=== PATIENT | female | born 1975 | race Caucasian/White ===

== ENCOUNTER 2016-08-07 17:06 | Observation (INO) | payer SELFPAY ==
[~2016-08-07] VITALS: Ht 167.6 cm; Wt 105.6 kg
--- NOTE | ~2016-08-07 | HP ---
PATIENT'S NAME: BEA BROWN [facility] AGE: 40 Y [address] ROOM: [place] [id number] LOCATION: [facility] ADMIT DATE: 08/07/2016 History & Physical DISCHARGE DATE: FAMILY PHYSICIAN: Cathy Negrete MD ATTENDING PHYSICIAN: SHERLY SHEPPARD V DATE OF SERVICE: CHIEF COMPLAINT: Blurry vision and left facial swelling. HISTORY OF PRESENT ILLNESS: The patient is a 40-year-old female, who has been undergoing some dental work due to a fractured tooth in the last several days. Yesterday, she developed pain and swelling over her left side of the face and was given ceftriaxone and Augmentin. This morning, the patient developed worsening swelling over the left side of her face as well as blurry vision. She came into the ER. A workup demonstrated a left-sided superficial facial cellulitis related to a left mandibular abscess, but no drainable abscesses or postseptal cellulitis. An MRI of the brain; however, demonstrated a 3 cm right cerebellar meningioma. At this point, the patient has received vancomycin and has seen by Neurosurgery. She feels that the swelling is better. Her vision is 20/30, which is her baseline. I do not appreciate any extraocular movement compromise or any compromise of the globe. REVIEW OF SYSTEMS: She denies nausea, vomiting, chest pain, shortness of breath, or palpitations. She does endorse recurrent migraines, which is an existing problem for her. PAST MEDICAL HISTORY: Migraines. PAST SURGICAL HISTORY: The patient denies. CURRENT MEDICATIONS: 1. Excedrin Migraine. 2. Augmentin. SOCIAL HISTORY: She does admit to tobacco use. Denies any other toxic habits. FAMILY HISTORY: Reviewed and is noncontributory. PATIENT'S NAME: BEA BROWN [facility] AGE: 40 Y [address] ROOM: [address] [address] LOCATION: [facility] ADMIT DATE: 08/07/2016 History & Physical DISCHARGE DATE: FAMILY PHYSICIAN: Cathy Negrete MD ATTENDING PHYSICIAN: SHERLY SHEPPARD V PHYSICAL EXAMINATION: VITAL SIGNS: At this point, her vital signs are blood pressure 129/89, heart rate is 89, saturating 96% on room air, she is afebrile, respirations are 16. GENERAL: Appears well-developed, well-nourished, middle-aged female, in no acute distress. HEENT: Facial exam does reveals some puffiness over the left side of her face with some discoloration over her left lid. There is very marginally palpable left-sided lymphadenopathy. Eyes exam reveals the pupils are equal and reactive and extraocular movements are symmetrical and intact bilaterally. Her vision is 20/30 in the affected eye, no stridor. LYMPHATIC: As above. NEUROLOGIC: Reveals no focal deficits. LUNGS: Reveals clear to auscultation. HEART: Rate is regular. ABDOMEN: Soft, nontender. : No costovertebral angle tenderness. VASCULAR: Reveals 2+ pedal pulses. MUSCULOSKELETAL: Unremarkable. PSYCHIATRIC: Reveals appropriate mood, cognition, and affect. LABORATORY STUDIES: Documented in the HPI. Lab results are significant for normal basic metabolic profile and a CBC with a hemoglobin of 8.7 and microcytosis. Platelets are 209. Procalcitonin is negative. Sedimentation rate is 139. ASSESSMENT AND PLAN: This is a 40-year-old female, who will be admitted with: 1. Facial cellulitis. The case has been discussed by my partner Dr. Gonzales with Dr. Michelle who will see the patient in the morning. We will aggressively treat her to cover gram-positive and gram-negative organisms that may be associated with a dental abscess. She has already received vancomycin in the ER and we will add Unasyn and continue her on this regimen. We will also put on a probiotic. We will also start her on symptomatic control with Tylenol. 2. Newly diagnosed meningioma. The patient has been seen by Dr. Qiu. We will see her as outpatient and plan surgery. 3. Microcytic anemia. We will check her iron indices and decide on additional followup, which can probably be done as outpatient. 4. Additional management will depend on clinical course. Time dedicated to this patient's encounter is 35 minutes. PATIENT'S NAME: BEA BROWN [facility] AGE: 40 Y [address] ROOM: [address] [address] LOCATION: [facility] ADMIT DATE: 08/07/2016 History & Physical DISCHARGE DATE: FAMILY PHYSICIAN: Cathy Negrete MD ATTENDING PHYSICIAN: SHERLY SHEPPARD MD AVK/mary /[id number] D: [id number] T: [id number] HISTORY & PHYSICAL
--- NOTE | ~2016-08-07 | DS ---
PATIENT'S NAME: BEA BROWN [facility] AGE: 40 Y [address] ROOM: [place] [address] [facility]: [facility] ADMIT DATE: 08/07/2016 Discharge Summary DISCHARGE DATE: 08/09/2016 FAMILY PHYSICIAN: Cathy Negrete MD ATTENDING PHYSICIAN: Clint Land V PRIMARY DIAGNOSES: 1. Preseptal cellulitis of the face. 2. Dental caries. 3. Meningioma. 4. Iron deficiency anemia. 5. Menorrhagia. 6. Migraine headaches. 7. Tobaccoism. OPERATIONS/PROCEDURES: None. HISTORY OF PRESENTING ILLNESS AND REASON FOR ADMISSION: Please refer to the H and P dictated on 08/07/2016. HOSPITAL COURSE: The patient was admitted to the hospital as noted above with a presumptive diagnosis of facial cellulitis. She was seen and evaluated by Neurosurgery as well as Ophthalmology at the point of admission. She was placed on broad-spectrum antibiotic therapy with IV Unasyn and vancomycin. She was hemodynamically stable. Because of the identification of a fairly large suspected meningioma, Neurosurgery was consulted. It was recommended to treat the infection and plan for outpatient followup for elective surgery. The meningioma was felt to be compressing the cerebellum and lateral fourth ventricle. She was otherwise asymptomatic from that standpoint. Her clinical condition improved fairly quickly. The facial swelling and redness had essentially resolved. She was treated with vancomycin and Unasyn over the course of the first 24 hours. This was subsequently switched to oral Augmentin. She was noted to have significant iron deficiency anemia, and this was felt to be secondary to chronic blood loss from menorrhagia. It was suggested that she should follow up with primary care provider to discuss management of this problem. We did place her on iron supplementation. By the third day of her hospital stay, it was felt she would be stable enough for discharge to home with plans for close clinical followup with her primary PATIENT'S NAME: BEA BROWN [facility] AGE: 40 Y [address] ROOM: [place] [address] LOCATION: [facility] ADMIT DATE: 08/07/2016 Discharge Summary DISCHARGE DATE: 08/09/2016 FAMILY PHYSICIAN: Cathy Negrete MD ATTENDING PHYSICIAN: Clint Land V care provider as well as outpatient followup with Neurosurgery as discussed above. DISCHARGE INSTRUCTIONS: DIET: Regular, as tolerated. ACTIVITY: As tolerated. MEDICATIONS: 1. Augmentin 875 mg p.o. b.i.d. x7 days. 2. Niferex 150 mg p.o. b.i.d. x30 days. 3. Florastor 250 mg p.o. b.i.d. x10 more days. 4. Acetaminophen 1000 mg p.o. q.6 hours p.r.n. 5. [place] 5/325 one tablet p.o. q.4 hours p.r.n. 6. Excedrin Migraine daily as needed for migraine headache pain. 7. Nicotine patch 14 mg, apply and change daily. FOLLOWUP: She will follow up with Dr. Qiu in the clinic in the upcoming week. She will follow up with Dr. Cathy Negrete, her primary care provider, in 3 to 5 days. CONDITION ON DISCHARGE: Fair. Total time spent on discharge process is 40 minutes. MD RAINA QUEVEDO/mary /[id number] d: 08/10/16 1054 t: 08/10/16 1642, DISCHARGE SUMMARY
--- NOTE | ~2016-08-07 | ER ---
PATIENT'S NAME: BEA BROWN [facility] AGE: 40 Y [address] ROOM: [id number] [place], [place] [address] LOCATION: [facility] ADMIT DATE: 08/07/2016 ER/Outpatient Report DISCHARGE DATE: FAMILY PHYSICIAN: Cathy Negrete MD ATTENDING PHYSICIAN: SHERLY SHEPPARD V HISTORY OF PRESENT ILLNESS: This patient is a 40-year-old female, who comes in with left facial swelling, pain, accompanied with fever, chills, headache. This was thought to be possibly a dental abscess extending up into the left periorbital area with blurred vision and left facial/periorbital swelling and redness. The patient was initially seen by Dr. Vines. See Dr. Vines's dictation in regard to the chief complaint, history of present illness, past medical history, physical exam, and laboratory study results. Dr. Vines transferred the patient's care over to me at shift change. She asked me to follow up the patient's results on her MRI scan of the facial bones, final diagnosis, and treatment plan. Dr. Vines did talk with Dr. Gonzales, hospitalist. Dr. Gonzales did see the patient down here in the emergency department. He did start her on vancomycin IV. MRI scan of the facial bones and orbits showed some soft tissue swelling, left periorbital area, but no abscess. No sinus changes, no facial bone changes. She did have a right 3 cm posterior fossa meningioma putting pressure on the cerebellum and right 7th cranial nerve. MRI scan was read by Radiology, see dictated/transcribed report. IMPRESSION: 1. Left facial swelling, redness, and pain, etiology uncertain, but most likely a cellulitis. No abscess on MRI scan. 2. Right 3 cm posterior fossa meningioma putting pressure on the cerebellum and 7th cranial nerve. 3. Headaches. PLAN: I did discuss the MRI scan with Dr. Gonzales, hospitalist. Dr. Gonzalse wanted the patient admitted to neurotrauma. The patient is receiving IV vancomycin here in the emergency department. Also was given fentanyl for pain. The patient most likely needs to have an Ophthalmology consult with Dr. Michelle and also Neurosurgery consult. JOSELYN VILLARREAL MD SDS/modl PATIENT'S NAME: BEA BROWN [facility] AGE: 40 Y [address] ROOM: [address] [address] LOCATION: [facility] ADMIT DATE: 08/07/2016 ER/Outpatient Report DISCHARGE DATE: FAMILY PHYSICIAN: Catyh Negrete MD ATTENDING PHYSICIAN: SHERLY SHEPPARD V /[id number] d: 08/08/16301 t: 08/08/161811, OUTPATIENT REPORT
--- NOTE | ~2016-08-07 | CON ---
PATIENT'S NAME: BEA BROWN [facility] AGE: 40 Y [address] 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 HISTORY OF PRESENT ILLNESS: The patient is a 40-year-old female who started complaining of left facial swelling and pain yesterday. She was assessed by her family physician and started on antibiotics. Today, the swelling got worse and she was reassessed by her family physician who sent the patient to the emergency for further investigations. The patient was seen by Ophthalmology as well. There was a concern about periorbital cellulitis. Noncontrast CT head was done, followed by brain MRI. Those investigations showed evidence of fairly large right cerebellar extra-axial mass with features very suggestive of right tentorial meningioma. I was asked to assess the patient with regard to that. I met the patient in the Neuro Trauma unit. She confirmed the history. She also reported a long history of migraine headaches. She denied dizziness, vertigo, falls, weakness on her hands or feet, double vision, weight loss. She reported left eye pain. She denied any pus drainage in her mouth. She reported remote history of head trauma. PAST MEDICAL AND SURGICAL HISTORY: Noncontributory to the patient's presentation. MEDICATIONS: Listed in the patient's chart. ALLERGIES: NO KNOWN DRUG ALLERGIES. SOCIAL HISTORY: The patient is an active smoker. She denies alcohol drinking. She denies drug abuse. FAMILY HISTORY: Noncontributory to the patient's presentation. PATIENT'S NAME: BEA BROWN [facility] AGE: 40 Y [address] ROOM: [place] [id number] LOCATION: [facility] ADMIT DATE: 08/07/2016 Consultation DISCHARGE DATE: FAMILY PHYSICIAN: Cathy Negrete MD ATTENDING PHYSICIAN: SHERLY SHEPPARD V REVIEW OF SYSTEMS: All points of review of systems were asked about. Pertinent positives were mentioned in HPI. PHYSICAL EXAMINATION: GENERAL: The patient was cooperative and pleasant. HEAD: It showed evidence of swelling over the left cheek. That area was tender to palpation. No evidence of open lacerations. MOUTH AND THROAT: She had poor dental hygiene. No evidence of purulent discharge. NECK: She had no tenderness to palpation. Neck range of motion was full and painless. No palpable masses. LYMPHATIC: No cervical lymphadenopathy. GAIT: It was steady. She was able to do the toe and heel walking. She was also able to do the tandem gait. RESPIRATORY: She was not in any respiratory distress. CARDIOVASCULAR: She has strong pulses on the upper and lower extremities. NEUROLOGIC: She was alert and oriented. Cranial nerves examination was grossly normal. Cerebellar examination was completely normal. Hjculm-sq-wfhb test was negative. No evidence of nystagmus. Romberg's test was questionable. Motor and sensory examination on the upper and lower extremities was unremarkable. Don and Babinski signs were negative. INVESTIGATIONS: 1. Sinus CT scan done earlier today. That scan showed evidence of soft tissue swelling over the left maxillary sinus. The maxillary sinus itself was patent and no evidence of sinusitis. The scan showed evidence of partially calcified mass located in the right posterior fossa. The CT features are very highly suggestive of right tentorial meningioma. 2. Brain MRI without and with contrast. It confirmed the findings of the CT scan. It showed evidence of 3 x 3 x 4 cm homogeneously enhancing mass located within the right posterior fossa. The mass itself is based against the right tentorium. The mass itself involves and occludes the right transverse sinus. The left transverse sinus is dominant and patent. No evidence of brain edema. No other masses were seen. The left orbit was negative for enhancement. IMPRESSION AND PLAN: A 40-year-old female patient is admitted to the hospital with left facial cellulitis is found to have a fairly large right tentorial mass with radiographic features suggestive of right tentorial meningioma. The patient is asymptomatic from the tumor. The tumor is fairly large and causing mass effect on the right cerebellum. The tumor itself is also occluding the right transverse sinus. PATIENT'S NAME: BEA BROWN [facility] AGE: 40 Y [address] ROOM: [address] [address] LOCATION: [facility] ADMIT DATE: 08/07/2016 Consultation DISCHARGE DATE: FAMILY PHYSICIAN: Cathy Negrete MD ATTENDING PHYSICIAN: SHERLY SHEPPARD V RECOMMENDATIONS: 1. Antibiotic treatment for the left facial cellulitis. 2. CT venogram of the brain to assess the patency of the right transverse sinus. 3. I recommended right craniotomy and resection of the tumor given the size of the tumor and the mass effect on the right cerebellum. I clearly indicated that the surgery should be done electively after the infection is treated to prevent complications. 4. The patient can be discharged from the neurosurgical perspective. 5. Ophthalmology assessment. I personally reviewed the images and discussed the findings with the patient. I clearly indicated that the radiographic features very highly suggestive of right tentorial meningioma. I then discussed my recommendation with the patient. I clearly indicated that based on the size of the tumor and mass effect it is causing on the right cerebellum, surgical resection is recommended. I will meet with this patient in my office after the infection is treated to discuss the surgery in more details. I do not think this patient requires any dexamethasone at this point. The patient asked appropriate questions about imaging and the surgery and all those questions were answered to her satisfaction. It was pleasure taking care of this patient and thanks for having us involved. MD MILAGROS CASTILLO/mary /[id number] CC: MD Cathy Rodriguez, MD Anisa Allan DO d: 08/08/16 0527 t: 08/10/16 1235, CONSULTATION REPORT
--- NOTE | ~2016-08-07 | ER ---
PATIENT'S NAME: BEA BROWN [facility] AGE: 40 Y [address] ROOM: [place] [address] LOCATION: [facility] ADMIT DATE: 08/07/2016 ER/Outpatient Report DISCHARGE DATE: FAMILY PHYSICIAN: Cathy Negrete MD ATTENDING PHYSICIAN: SHERLY SHEPPARD V Time of Arrival: 1706 hours. Time of Evaluation/Seen: 1708 hours. IDENTIFICATION: A 40-year-old female. CHIEF COMPLAINT: Facial swelling. HISTORY OF PRESENT ILLNESS: The patient is a 40-year-old female, referred from [facility] for facial swelling and evaluation by Ophthalmology and Hospitalist. The patient was in the clinic, seen for facial swelling and dental abscess the day prior, but today she noted increase in swelling in and around her left eye with some blurriness to her left eye. They did talk with Dr. Gonzales, who recommended she come to the ER. Dr. Gonzales spoke with Dr. Michelle, who requested an MRI of her orbit. The patient has had no fever or chills. No other problems or concerns. PAST MEDICAL HISTORY: ALLERGIES: NO KNOWN DRUG ALLERGIES. CURRENT MEDICATIONS: 1. Tylenol. 2. Ibuprofen. 3. Amoxicillin. 4. Excedrin Migraine. MEDICAL PROBLEMS: Migraine headaches. PAST SURGICAL HISTORY: Prior Surgeries: 1. Tubal ligation. 2. Tonsillectomy. 3. Benign breast lumpectomy. PATIENT'S NAME: BEA BROWN [facility] AGE: 40 Y [address] ROOM: [place] [address] LOCATION: [facility] ADMIT DATE: 08/07/2016 ER/Outpatient Report DISCHARGE DATE: FAMILY PHYSICIAN: Cathy Negrete MD ATTENDING PHYSICIAN: SHERLY SHEPPARD V SOCIAL HISTORY: The patient lives here in [place]. She works at [employer]. Tobacco use, half pack per day for 21 years. Alcohol use, denies. Drug use, denies. REVIEW OF SYSTEMS: All systems reviewed and are negative other than what is noted in the HPI. PHYSICAL EXAMINATION: VITAL SIGNS: Height 5 feet 6 inches and weight 104.3 kg. Blood pressure 133/83, pulse 66, respiratory rate 16, temperature 98.5, and sats 99% on room air. GENERAL: A 40-year-old female, in no acute distress. HEENT: Head; normocephalic and atraumatic. Ears; TMs translucent in both ears. Eyes; pupils equal and reactive to light and accommodation. Extraocular movements intact. Nose; mucosa pink. No lesions or drainage. Mouth; no lesions. Pharynx, benign. She does have swelling and tenderness over her left mandible. She has redness around her eye that is tender to palpation. Some swelling in that area. She has no redness to the conjunctivae and her extraocular movements are intact. Grossly she says she has a little blurred vision in that left eye. NECK: Supple. No lymphadenopathy. LUNGS: Clear to auscultation. HEART: Regular rate and rhythm. ABDOMEN: Soft, nondistended, and nontender. SKIN: [place], warm, and dry. No lesions or rashes noted. NEUROLOGIC: The patient is alert and oriented x4. Cranial nerves 2 through 12 grossly intact. Motor strength 5/5 throughout. Sensation is intact to light touch. LABORATORY DATA: 1. Laboratories were ordered to include: CBC, renal panel, sedimentation rate, CRP, lactate, and procalcitonin. EMERGENCY DEPARTMENT COURSE: IV vancomycin was ordered per Dr. Gonzales's recommendation. CT and MRI were ordered. Dr. Gonzales evaluated the patient in the emergency room and he will contact, Dr. Michelle. It is change of shift and Dr. Alvarado will assume any necessary ER care. IMPRESSION AND PLAN: 1. Facial cellulitis with a possibility of periorbital cellulitis. MRI pending at this time and Dr. Michelle's consultation is pending at this time. IV vancomycin has been ordered. 2. Her hemoglobin did come back prior to my leaving and her hemoglobin is 8.7, white count is normal at 6.3. Previous hemoglobin for comparison PATIENT'S NAME: BEA BROWN [facility] AGE: 40 Y [address] ROOM: [id number] [place], [place] [address] LOCATION: [facility] ADMIT DATE: 08/07/2016 ER/Outpatient Report DISCHARGE DATE: FAMILY PHYSICIAN: Cathy Negrete MD ATTENDING PHYSICIAN: SHERLY SHEPPARD V here in our system was in September 2015, when it was 10.1, so impression and plan is microcytic hypochromic anemia. Further work up per Dr. Gonzales. MD REYNALDO MERAZ/mary /[id number] d: 08/08/16 1651 t: 08/13/16 0653, OUTPATIENT REPORT
[2016-08-07 17:51] LABS: BASOPHIL % 0.5 %; EOSINOPHIL % 0.5 %; HEMOGLOBIN 8.7 g/dL (11.0-15.0); IMMATURE GRANULOCYTE % 0.3 %; LYMPHOCYTE # 1.3 K/uL (0.8-4.0); LYMPHOCYTE % 21.1 %; MCH 23.1 pg (27.0-34.0); MCV 76.9 fl (83.0-98.0); MONOCYTE # 0.4 K/uL (0.0-1.0); MONOCYTE % 6.2 %; MPV 12.4 fl (9.4-12.4); NEUTROPHIL # (ANC) 4.5 K/uL (1.8-7.8); NEUTROPHIL % 71.4 %; NRBC % 0 /100WBC (0-0.00); PLATELET COUNT 209 K/uL (150-450); RBC 3.77 M/uL (3.50-5.50); RDW-CV 16.1 % (11.9-14.6); WBC 6.3 K/uL (4.0-11.0)
[2016-08-07 18:12] LABS: ALBUMIN 3.5 gm/dL (3.5-5.0); BLOOD UREA NITROGEN 10 mg/dL (6-24); CALCIUM 8.8 mg/dL (8.5-10.5); CHLORIDE 109 mMol/L (96-110); CO2 23 mMol/L (22-32); CREATININE 0.6 mg/dL (0.5-1.1); ESTIMATED GFR (MDRD EQUATION) > 60; PHOSPHORUS 2.6 mg/dL (2.5-4.9); SODIUM 141 mMol/L (135-145)
[2016-08-07 18:28] LABS: ANION GAP 13.3 (10.0-19.0); POTASSIUM 4.3 mMol/L (3.7-5.1)
--- NOTE | 2016-08-08 00:14 | NUR ---
Patient arrived on floor from the ER at 2109. Patient had swelling to her face and had seen her family doctor 08/06 who had placed her on antibiotics since it looked like she might have gotten an infection due to a tooth absess. Pt went back to doctor 08/07 since swelling had gotten worse. Doctor then sent her to the ER. In ER they did MRI and found a meningioma. Pt had IV placed in ER and was started on vanco to help with infection in face. Dr. Qiu then saw patient on the floor and discussed possible surgery after infection in face is cleared.
--- NOTE | 2016-08-08 02:55 | NUR ---
Significant Event: Alert and oriented x3. Denies N&T. Moves all extremities without complications. Up SBA moves steady on feet feels light headed at times when first stands. PERRLA. VSS. Regular diet. Currently on minstrel cycle. Last BM 08/06. RA lungs clear. IV to L) wrist SL on intermitent antibiotics. Percocet given for pain. Follow up: IV antibiotics possible d/c today. Follow up with Dr. Qiu outpatient.
[2016-08-08 04:15] LABS: BASOPHIL % 0.3 %; EOSINOPHIL % 0.5 %; HEMATOCRIT 26.9 % (33.0-46.0); HEMOGLOBIN 8.1 g/dL (11.0-15.0); IMMATURE GRANULOCYTE % 0.2 %; LYMPHOCYTE # 1.7 K/uL (0.8-4.0); LYMPHOCYTE % 29.7 %; MCH 23.5 pg (27.0-34.0); MCHC 30.1 gm/dL (32.0-36.5); MONOCYTE # 0.4 K/uL (0.0-1.0); MONOCYTE % 7.3 %; MPV 11.7 fl (9.4-12.4); NEUTROPHIL # (ANC) 3.6 K/uL (1.8-7.8); NRBC % 0 /100WBC (0-0.00); PLATELET COUNT 192 K/uL (150-450); RBC 3.45 M/uL (3.50-5.50); RDW-CV 15.9 % (11.9-14.6); WBC 5.8 K/uL (4.0-11.0)
[2016-08-08] MEDS ORDERED: TYLENOL EXTRA500 MG PO (09:53)
[2016-08-08] MEDS ORDERED: EXCEDRIN MIGRA1 EACH PO (09:53)
--- NOTE | 2016-08-08 12:30 | NUR ---
Pt sleeping, so I spoke with nursing and do not anticipate any needs on discharge. WIll assist as needed
--- NOTE | 2016-08-08 14:53 | NUR ---
Significant Event: a/o x 3. pain to left side of face from infection and left hand IV site. PRN percocet for pain management. Cardio- tele with sinus shelbie. room air. c/o nausea and emesis around 0930 and 1300. PRN zofran, crackers and rest for nausea. IV to left hand saline locked in between antibiotic doses. up ad diana. was going to go home today and then after emesis at 1300 decided to stay another day. Dr. Michelle (eye doctor) saw patient this am. Discharge plan- home tomorrow.
--- NOTE | 2016-08-09 04:23 | NUR ---
Significant Event: Patient is alert and oriented x3. VSS. PERRLA. Follows commands. Strong equal strength throughout. Denies N/T. Denies BRADY. Edema to the left side of face has diminished. Slight redness to left eye area. Sinus rhythm to sinus shelbie. 2+ pulses. Portable tele. Room air-lungs are clear. Regular diet. Last Bm -08/07-active x4. Up ad diana- SBA. PIV in left wrist- sl'd when Unasyn and Vanco are not running. Denies nausea. Was able to tolerate a sandwich with no emesis. Family at bedside. Follow up: Discharge to home 08/09.
[2016-08-09 05:53] LABS: BASOPHIL % 0.2 %; EOSINOPHIL # 0.1 K/uL (0.0-0.5); HEMATOCRIT 27.3 % (33.0-46.0); IMMATURE GRANULOCYTE % 0.2 %; LYMPHOCYTE # 1.5 K/uL (0.8-4.0); LYMPHOCYTE % 23.7 %; MCH 23.1 pg (27.0-34.0); MCHC 29.3 gm/dL (32.0-36.5); MCV 78.7 fl (83.0-98.0); MONOCYTE # 0.5 K/uL (0.0-1.0); MONOCYTE % 7.3 %; MPV 12.1 fl (9.4-12.4); NEUTROPHIL # (ANC) 4.2 K/uL (1.8-7.8); NEUTROPHIL % 67.6 %; NRBC % 0 /100WBC (0-0.00); PLATELET COUNT 182 K/uL (150-450); RBC 3.47 M/uL (3.50-5.50); RDW-CV 15.8 % (11.9-14.6); WBC 6.1 K/uL (4.0-11.0)
--- NOTE | 2016-08-09 10:27 | NUR ---
Significant Event: TOOK OVER PT CARE FROM [id number]. PT IS ALERT AND ORIENTED X3. NEURO INTACT. UP AD LEIDY IN ROOM. VOIDS PER BATHROOM. TOOK A SHOWER THIS MORNING. PORTABLE TELEMETRY ON. HAS COMPLAINED OF PAIN TO L)SIDE OF FACE. SCHEDULED EXCEDRIN HAS HELPED WITH DISCOMFORT. HAS REFUSED TO WEAR BILATERAL CALF PUMPS. IV TO L)WRIST SALINE LOCKED; INTERMITTENT ANTIBIOTICS. REGULAR DIET. NO COMPLAINTS OF NAUSEA THIS SHIFT. GREAT APPETITE. Follow up: PLAN TO DISCHARGE HOME TODAY
[2016-08-09] MEDS ORDERED: NIFEREX-150) (150 MG PO (11:25)
[2016-08-09] MEDS ORDERED: FLORASTOR250 MG PO (11:25)
[2016-08-09] MEDS ORDERED: AUGMENTIN250 MG PO (11:28)
[2016-08-09] MEDS ORDERED: NICOTINE PATCH1 EAC1 TRANS (11:30)
[2016-08-09] MEDS ORDERED: NORCO 5-325 TA1 EACH PO (11:31)
--- NOTE | 2016-08-09 12:35 | NUR ---
Introduced self and role of care management to pt. Pt lives and works in [place]. She is leaving today and will get meds filled. She has the financial application already. At this time denies concerns or needs.
--- NOTE | 2016-08-09 13:34 | NUR ---
Significant Event: PATIENT DISCHARGED TO HOME. LEFT NTU AT 1240 PER W/C ACCOMPANIED BY DAUGHTER. REC'D DISC WITH COPY OF MRI AND CT PRIOR TO DISCHARGE. TO BE DRIVEN HOME PER PRIVATE VEHICLE BY SIGNIFICANT OTHER.
[2016-08-19] MEDS ORDERED: AMOXICILLIN500 MG PO (15:47)
[2016-08-19] MEDS ORDERED: NIFEREX-150) (150 MG PO (15:49)
[2016-08-19] MEDS ORDERED: CULTURELLE1 CAP PO (15:50)
== END 2016-08-09 12:39 | disposition disaster alternative care site (69) ==
LOC: GMED 17:06 → GNTU 20:16
PROVIDERS: Family Medicine; ADMIT Internal Medicine
DX: L03.213 Periorbital cellulitis (principal); K02.9 Dental caries, unspecified; D32.9 Benign neoplasm of meninges, unspecified; D50.9 Iron deficiency anemia, unspecified; Z23 Encounter for immunization; N92.0 Excessive and frequent menstruation with regular cycle; G43.909 Migraine, unspecified, not intractable, without status migrainosus; F17.210 Nicotine dependence, cigarettes, uncomplicated; Z79.899 Other long term (current) drug therapy; Z98.51 Tubal ligation status; Z90.89 Acquired absence of other organs; Z79.82 Long term (current) use of aspirin
CPT/HCPCS: A9577; G0008; G0378; J0295; J2405; J3010; J3370; J7040; J7050

== ENCOUNTER 2016-08-21 14:06 | Inpatient (IN) | payer MEDICAID ==
[~2016-08-21] VITALS: Ht 167.6 cm; Wt 101.9 kg
--- NOTE | ~2016-08-21 | OR ---
PATIENT'S NAME: BEA BROWN [facility] AGE: 41 Y [address] ROOM: [place] [address] LOCATION: GICU ADMIT DATE: 08/22/2016 OR/Procedure Report DISCHARGE DATE: FAMILY PHYSICIAN: Cathy Negrete MD ATTENDING PHYSICIAN: KATIE QIU SURGEON: Katie Qiu MD ELECTRICAL UNIT REBUILDER: DATE OF PROCEDURE: 08/22/2016 ANESTHESIOLOGIST: Ray Mendieta MD ANESTHESIA: General. COMPLICATIONS: None. ESTIMATED BLOOD LOSS: Less than 200 mL. 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 PROCEDURES PERFORMED: 1. Right occipital/suboccipital craniotomy and gross total resection of the right tentorial/cerebellar meningioma (To grade 1). 2. Stealth navigation system for resection of the tumor. 3. Resection of invaded/occluded right transverse sinus, tentorium. CLINICAL HISTORY/INDICATIONS FOR PROCEDURE: The patient was diagnosed on MRI to have a large right tentorial/cerebellar meningioma. I recommended the above-mentioned surgery to the patient. I discussed the risks and benefits. The patient was brought in for the operation. DESCRIPTION OF PROCEDURE: The patient was seen in the preoperative care unit and the correct side was marked. Then, she was transferred to the main operating theater, was given general anesthetic, and underwent endotracheal intubation without complications. Preoperative antibiotics, steroids, and mannitol were given. Erwin catheter, central line, and arterial line were used throughout the procedure. The patient was then positioned in a lateral position with the right side up and all her joints and bony prominences were securely padded. The patient's head was clamped in Sugita clamp and secured to the table. The right occipital and suboccipital regions were exposed. The patient was then registered to the Training Advisor navigation system with good accuracy. I then navigated the extent of the tumor on the scalp and based on PATIENT'S NAME: BEA BROWN [facility] AGE: 41 Y [address] ROOM: [place] [address] LOCATION: GICU ADMIT DATE: 08/22/2016 OR/Procedure Report DISCHARGE DATE: FAMILY PHYSICIAN: Cathy Negrete MD ATTENDING PHYSICIAN: KATIE QIU that, a linear incision was marked in the right occipital and suboccipital regions. The hair overlying the incision was clipped off. The surgical site was then prepped and draped as per usual. The proposed skin incision was infiltrated with 0.25% Marcaine with epinephrine. The skin was sharply opened down to the bone and suboccipital muscles, then monopolar cautery was used to elevate the skin flaps medially and laterally. Self-retaining retractors were placed in. I again used the Training Advisor navigation system to navigate the extent of the tumor as well as the occluded/invaded transverse sinus. A high-speed Midas Wicho drill was brought in and two angel holes were fashioned in the occipital and suboccipital bone and bone flap was turned and elevated without complications. Immediately, I noticed invasion of the occipital bone by the tumor. The invaded bone was drilled away using a high-speed Midas Wciho drill to achieve a gross total resection. The tumor itself was visible on the dura. The tumor attachment was along the tentorium and the right transverse sinus. I then proceeded to open the dura. The dura was circumferentially opened around the tumor in the occipital and suboccipital regions. The cerebellum and the occipital lobes were identified. I then used the ultrasonic aspirator to debulk the tumor from the inside. After satisfactory debulking of the tumor, I proceeded to dissect the tumor off the brain. I used sharp dissection and bipolar to achieve that. I resected the tumor in a piecemeal fashion. I continued to circumferentially work around the tumor until all of the tumor was removed. I was satisfied with that. I had no complications. Then, I turned my attention to resect the invaded/occluded right transverse sinus. The transverse sinus was clamped medially and laterally, and it was resected using Metzenbaum scissors. I also resected the tentorium attached to tumor. This part of the operation required more time and caution to perform in order to avoid injury and to achieve total resection of tumor. I had no complications during that. All the tumor tissue and the dura were sent out for pathological analysis. I achieved a To grade 1 resection in this patient. Then, I proceeded to hemostasis and closure. The wound was copiously irrigated. Surgical site was lined up with one layer of Surgicel. Then, I used the dura repair graft, and the dura was repaired in a watertight fashion. The DuraSeal was placed on the dura. Then, the bone was anchored to the skull with titanium plates, mesh, and screws. The wound was then irrigated with bacitracin-containing irrigation. The wound was then closed in layers with 2- 0 Vicryl to the suboccipital muscles, 2-0 Vicryl to the fascia, and 2-0 Vicryl to the subcutaneous tissue, and joel for the skin. Sterile dressing was applied. At the end of the operation, the instrument and sponge counts were correct. The patient tolerated the operation without complications. PATIENT'S NAME: BEA BROWN [facility] AGE: 41 Y [address] ROOM: [place] [address] LOCATION: [facility] ADMIT DATE: 08/22/2016 OR/Procedure Report DISCHARGE DATE: FAMILY PHYSICIAN: Cathy Negrete MD ATTENDING PHYSICIAN: KATIE QIU This case required more time and caution to perform in order to achieve total resection of tumor. Resecting the occluded sinus and tentorium was difficult and required more time to perform. KATIE QIU MD AB/modl /[id number] CC: Cathy Negrete MD d: 08/22/161 t: 08/24/16 2213, OPERATIVE SUMMARY
--- NOTE | ~2016-08-21 | OR ---
PATIENT'S NAME: BEA BROWN [facility] AGE: 41 Y [address] ROOM: [place] [id number] LOCATION: GICU ADMIT DATE: 08/22/2016 OR/Procedure Report DISCHARGE DATE: FAMILY PHYSICIAN: Cathy Negrete MD ATTENDING PHYSICIAN: EMILIO HERNANDEZ SURGEON: Ray Mendieta MD MAXILLOFACIAL PROSTHETICS DENTIST: DATE OF PROCEDURE: 08/22/2016 PROCEDURE: Insertion of central venous catheter. INDICATION FOR PROCEDURE: Intraoperative hemodynamic monitoring and access. DESCRIPTION OF PROCEDURE: After a brief time-out was completed verifying the correct patient, procedure, and site, the patient was placed in dependent position appropriate for central line placement. Using the Seldinger technique and under real-time ultrasound guidance, a 2-lumen 8-Telugu 16 cm catheter was inserted into the right internal jugular vein. The guidewire was then removed. Each lumen of the catheter was evacuated from air and then flushed with sterile saline. The catheter then was sutured in place and a sterile Tegaderm was applied. Postoperative chest x-ray confirmed the placement of the catheter found to be in a proper position with no procedural complications. MD GUILLERMO HATFIELD/mary /[id number] d: 08/22/16 234 t: 09/03/16 1141, OPERATIVE SUMMARY
--- NOTE | ~2016-08-21 | DS ---
PATIENT'S NAME: BEA BROWN [facility] AGE: 41 Y [address] ROOM: [address] [place] [id number] LOC[facility]: [facility] ADMIT DATE: 08/22/2016 Discharge Summary DISCHARGE DATE: 08/25/2016 FAMILY PHYSICIAN: Cathy Negrete MD ATTENDING PHYSICIAN: Katie Qiu ADMISSION MAIN DIAGNOSES: 1. Right tentorial/cerebellar meningioma with mass effect. 2. Right transverse sinus occlusion/invasion. DISCHARGE MAIN DIAGNOSES: 1. Right tentorial/cerebellar meningioma with mass effect. 2. Right transverse sinus occlusion/invasion. PROCEDURES DURING ADMISSION: 1. Right occipital/suboccipital craniotomy and gross total resection of tentorial/cerebellar meningioma (To grade 1). 2. Resection of occluded/invaded right transverse sinus and tentorium. COMPLICATIONS DURING ADMISSION: None. FOLLOWUP APPOINTMENTS AND DISCHARGE INSTRUCTIONS: 1. Myself on 09/03/2016 for staple removal. 2. Call my office for any concerns regarding the wound healing or for any new neurologic symptoms. 3. May wash the head on 08/29/2016. MEDICATIONS ON DISCHARGE: 1. Dexamethasone 2 mg p.o. t.i.d. for 2 days, then 2 mg p.o. b.i.d. for 2 days, then 2 mg p.o. once daily for 2 days, then stop. 2. Pepcid 20 mg p.o. b.i.d. while on dexamethasone. 3. Resume all pre-admission medications. HOSPITAL COURSE: The above patient was admitted electively for the above- mentioned surgery. She underwent an unremarkable operation on 08/22/2016. Postoperatively, she did very well. She had no new neurological deficits. Initially, she was observed in the intensive care unit and subsequently, she was transferred to the Neuro Trauma Unit. She had postoperative CT scan and that showed total resection of the tumor and no complications. She was mobilized by physiotherapy and occupational therapy and she did very well. On the day of discharge, she was examined. The wound was healing very well. She remained neurologically intact. Her surgical pain was controlled. I reviewed the discharge instructions with her and based on that, she was sent home. PATIENT'S NAME: BEA BROWN [facility] AGE: 41 Y [address] ROOM: [id number] [place], [place] [address] LOCATION: [facility] ADMIT DATE: 08/22/2016 Discharge Summary DISCHARGE DATE: 08/25/2016 FAMILY PHYSICIAN: Cathy Negrete MD ATTENDING PHYSICIAN: Katie Qiu KATIE QIU MD AB/modl /[id number] CC: Cathy Nergete MD d: 08/26/16 0725 t: 09/10/16 1453, DISCHARGE SUMMARY
[~2016-08-21 14:06] MED LIST: AMOXICILLIN500 MG PO; AUGMENTIN250 MG PO; CULTURELLE1 CAP PO; EXCEDRIN MIGRA1 EACH PO; FLORASTOR250 MG PO; NICOTINE PATCH1 EAC1 TRANS; NIFEREX-150) (150 MG PO; NORCO 5-325 TA1 EACH PO; TYLENOL EXTRA500 MG PO
--- NOTE | 2016-08-22 15:12 | NUR ---
Significant Event: Drowsy awakens easily, oriented x3. Follows commands, equal strength bilaterally to extremities. PERRLA. AFebrile. VSS. Activity as tolerated. Regular diet. To keep sbp < or equal to 150. On RA. Erwin catheter intact. Dressing to head shadow drainage. R) FA saline locked. R) IJ double lumen, infusing NS with 20 KCL at 75 ml/hr. Repositions self. Family at bedside. Neuro checks q1h x6 and then q2h. Follow up: monitor.
--- NOTE | 2016-08-23 05:17 | NUR ---
PERRLA. A/Ox3. No complaints of N/T. Good strength in extremities x4. SBP 110-130s. SR with HR 70-90s. Afebrile. Continues on RA with o2 sats in upper 90s. Has frequent nausea upon movement. Decreased appetite. No BM this shift. Follow up: Continue to monitor Nuero status.
[2016-08-23 05:27] LABS: BASOPHIL % 0.1 %; HEMATOCRIT 31.9 % (33.0-46.0); HEMOGLOBIN 9.5 g/dL (10.0-15.0); IMMATURE GRANULOCYTE # 0.1 K/uL (0.0-0.3); IMMATURE GRANULOCYTE % 0.4 %; LYMPHOCYTE # 0.6 K/uL (0.8-4.0); LYMPHOCYTE % 4.5 %; MCH 22.8 pg (27.0-34.0); MCHC 29.8 gm/dL (32.0-36.5); MCV 76.5 fl (83.0-98.0); MONOCYTE # 0.9 K/uL (0.0-1.0); MONOCYTE % 6.5 %; MPV 10.9 fl (9.4-12.4); NEUTROPHIL # (ANC) 12.5 K/uL (1.8-7.8); NEUTROPHIL % 88.5 %; NRBC % 0 /100WBC (0-0.00); RBC 4.17 M/uL (3.50-5.50); RDW-CV 16.2 % (11.9-14.6); WBC 14.1 K/uL (4.0-11.0)
[2016-08-23 05:29] LABS: PLATELET COUNT 263 K/uL (150-450)
[2016-08-23 05:49] LABS: ALBUMIN 3.4 gm/dL (3.5-5.0); ALK PHOS 51 IU/L (33-138); ALT 24 IU/L (12-78); ANION GAP 12.1 (10.0-19.0); AST 18 IU/L (10-40); BLOOD UREA NITROGEN 11 mg/dL (6-24); CALCIUM 8.3 mg/dL (8.5-10.5); CHLORIDE 108 mMol/L (96-110); CO2 26 mMol/L (22-32); CREATININE 0.7 mg/dL (0.5-1.1); ESTIMATED GFR (MDRD EQUATION) > 60; POTASSIUM 4.1 mMol/L (3.7-5.1); SODIUM 142 mMol/L (135-145); TOTAL BILIRUBIN 0.4 mg/dL (0.0-1.5); TOTAL PROTEIN 7.4 g/dL (6.0-8.4)
--- NOTE | 2016-08-23 13:00 | NUR ---
Introduced self and role of care management to patient and her mother. Patient lives in [place] with her S.O. and her teenage daughter. She says told her home maybe on Friday. She is self pay. She says she had filled out a financial assistance form but her daughter accidentally shredded it. She says admissions gave her another form. She is wondering about medicaid as will be off work for awhile. She says she applied in the past and was not eligible, but may apply again. Encouraged her to look into it again. Told her I will make a referral to the [facility] and she is OK with that. Denies discharge needs at this time. Called and spoke with Nasrin with [employer] and she will contact patient. Will follow.
--- NOTE | 2016-08-23 16:29 | NUR ---
Significant Event: Patient transferred from ICU at 1600. Patient A/O X3. Denies N/T. Follows commands. Equal strength throughout. SLight headache with [place] X1 tab given at 1625. VSS. Afebrile. Room air with sats in the mid 90s. LS clear throughout. Voids per toilet. BS active X4. Passing gas. Dressing to R) posterior side of head. C/D/I. Puncture site to left side of head. R) FA PIV SLL. 1 assist with gaitbelt. Family at bedside. Flat affect. Follow up: home friday?
--- NOTE | 2016-08-23 17:56 | NUR ---
Patient transferred to NTU at 1555. Ambulated down ICU segura approximately 100 ft. NEURO: PERRLA 3 mm. Equal strength bilaterally. Steady gait. A and O x 3. INT: Shadow drainage on surgical dressing.
--- NOTE | 2016-08-24 02:53 | NUR ---
Significant Event: Patient is alert and oriented x 3. Drowsy at times but arouses easily. Denies numbness or tingling. Does c/o headache at times and takes [place] to control pain. Moves spontaneously and follows commands. PERRL. Equal strength throughout. 2+ pulses. Trace edema to BLE. HTN-SBP 140s. Goal < 150. Tachycardic at times. VSS. Afebrile. On room air. Lungs clear throughout. Voids per restroom without difficulty. Bowel sounds active. No BM this shift. Did obtain order for PRN Miralax and Dulcolax this shift per Dr. Qiu. Dressing to right side where IJ was was discontinued. Dressing to right posterior head stapled-dry and intact with shadow drainage. Puncture site to left side of head. Right forearm IV SL with no complications. SBA, gait belt. Significant other at bedside. Flat affect. Follow up: pain management, home Friday?, monitor neuro status, BM
[2016-08-24 04:40] LABS: BASOPHIL % 0.1 %; HEMOGLOBIN 9.3 g/dL (10.0-15.0); IMMATURE GRANULOCYTE # 0.1 K/uL (0.0-0.3); IMMATURE GRANULOCYTE % 0.4 %; LYMPHOCYTE # 0.8 K/uL (0.8-4.0); LYMPHOCYTE % 6.1 %; MCH 22.8 pg (27.0-34.0); MONOCYTE # 0.5 K/uL (0.0-1.0); MONOCYTE % 3.7 %; MPV 11.7 fl (9.4-12.4); NEUTROPHIL # (ANC) 11.4 K/uL (1.8-7.8); NEUTROPHIL % 89.7 %; NRBC % 0 /100WBC (0-0.00); PLATELET COUNT 304 K/uL (150-450); RBC 4.08 M/uL (3.50-5.50); RDW-CV 16.4 % (11.9-14.6); WBC 12.7 K/uL (4.0-11.0)
[2016-08-24 04:54] LABS: ALBUMIN 3.3 gm/dL (3.5-5.0); ALK PHOS 46 IU/L (33-138); ALT 23 IU/L (12-78); ANION GAP 12.2 (10.0-19.0); AST 14 IU/L (10-40); BLOOD UREA NITROGEN 12 mg/dL (6-24); CALCIUM 8.6 mg/dL (8.5-10.5); CHLORIDE 105 mMol/L (96-110); CO2 25 mMol/L (22-32); CREATININE 0.6 mg/dL (0.5-1.1); ESTIMATED GFR (MDRD EQUATION) > 60; POTASSIUM 4.2 mMol/L (3.7-5.1); SODIUM 138 mMol/L (135-145); TOTAL PROTEIN 7.4 g/dL (6.0-8.4)
[2016-08-24 04:55] LABS: TOTAL BILIRUBIN 0.3 mg/dL (0.0-1.5)
--- NOTE | 2016-08-24 16:35 | NUR ---
Significant Event: A/O X3, 1 assist/gait belt, unsteady gait, up in chair x1, ambulated in segura x1, voids per toilet, nausea/emesis at breakfast, zofran & IV dilaudid given. norco at 1300. doing well with eating jello & applesauce. @ bedside. drsg to head intact w/ shadow drng. R)FA saline lock, lungs diminished BLL. Follow up: possible discharge home Friday or Friday.
--- NOTE | 2016-08-25 03:52 | NUR ---
Significant Event: Patient alert and oriented. Speech slow at times. Equal strength to extremities. Pupils equal and reactive. Denies abnormal sensation. VSS on room air. [place] given x1 with relief noted. Ambulated in segura with standby assist. Denies nausea this shift. Pleasant and cooperative with cares. Rested well throughout shift. Plans for discharge home today. Follow up: pending discharge home
[2016-08-25] MEDS ORDERED: DECADRON1 MG PO ×3 (11:36→11:37)
[2016-08-25] MEDS ORDERED: PEPCID20 MG PO (11:40)
[2016-08-25] MEDS ORDERED: ADVIL200 MG PO (11:42)
[2016-08-25] MEDS ORDERED: AMOXICILLIN500 MG PO (11:42)
[2016-08-25] MEDS ORDERED: ALEVE220 M1 PO (11:42)
--- NOTE | 2016-08-25 12:55 | NUR ---
written and verbal dismissal instructions given to pt. and including diet, activity, prescriptions, incision care, blood clot prevention, and follow up care. verbalized understanding. escorted per w/c to ride home in stable condition.
== END 2016-08-25 12:53 | disposition disaster alternative care site (69) | DRG 27 ==
LOC: GLAB 14:06 → GICU 08-22 06:00 → EDSTATUS 08-22 14:00 → GICU 08-23 08:16 → GNTU 08-23 16:03
PROVIDERS: ADMIT Neurological Surgery
PROC: 05HM33Z Insertion of Infusion Device into Right Internal Jugular Vein, Percutaneous Approach (ICD-10-PCS; principal; 2016-08-22)
PROC: 00B10ZX Excision of Cerebral Meninges, Open Approach, Diagnostic (ICD-10-PCS; 2016-08-22)
PROC: B543ZZA Ultrasonography of Right Jugular Veins, Guidance (ICD-10-PCS; 2016-08-22)
DX: D32.9 Benign neoplasm of meninges, unspecified (principal); D50.9 Iron deficiency anemia, unspecified; Z87.891 Personal history of nicotine dependence
CPT/HCPCS: C1713; C1781; J0690; J1100; J1170; J2001; J2250; J2405; J2765; J3480; J7030

== ENCOUNTER → 2016-10-22 | Outpatient (CLI) | payer MEDICAID ==
[~2016-10-22] MED LIST changes: +ADVIL200 MG PO; +ALEVE220 M1 PO; +DECADRON1 MG PO; +PEPCID20 MG PO
[2016-10-22 09:36] LABS: CREATININE 0.6 mg/dL (0.5-1.1)
[2016-10-22 09:41] LABS: ESTIMATED GFR (MDRD EQUATION) > 60
== END | disposition disaster alternative care site (69) ==
LOC: GLAB 08:47 → GRAD 10:00
PROVIDERS: Neurological Surgery
DX: D32.9 Benign neoplasm of meninges, unspecified (principal)

== ENCOUNTER → 2016-11-29 | Outpatient (CLI) | payer MEDICAID | END | disposition disaster alternative care site (69) | LOC: GBCOE 11:59 | DX: Z12.31 Encounter for screening mammogram for malignant neoplasm of breast (principal) | CPT/HCPCS: G0202 ==

== ENCOUNTER → 2017-02-06 | Outpatient (CLI) | payer MEDICAID | END | disposition disaster alternative care site (69) | LOC: GRAD 10:42 | DX: N92.0 Excessive and frequent menstruation with regular cycle (principal) ==